=== PATIENT | female | born 1930 | race Caucasian/White ===

== ENCOUNTER 2017-02-28 08:18 | Inpatient (IN) | payer MEDICARE ==
[2017-02-25 19:10] LABS: ASCORBIC ACID (UR NOT ORDER) NEG (NEG); BILIRUBIN, URINE NEGATIVE (NEG); KETONE, URINE NEGATIVE (NEG)
--- NOTE | ~2017-02-28 | HP ---
History And Physical [place] [id number] [place]. [address] NAME: MARY ADAMS APRIL : 30 STATUS : DIS IN PAT#: [id number] AGE: 87 ADM/REG DATE : 02/28/17 MR#: [id number] REPORT SERV DATE: 04/01/17 DICTATED BY: HANNAH SILVA DATE: 03/31/17 REPORT STATUS : Draft TRANSCRIBED BY: MODL DATE: 03/31/17 DATE OF ADMISSION: 02/28/2017 REASON FOR ADMISSION: Altered level of consciousness, malignant hypertension. HISTORY OF PRESENT ILLNESS: Ms. Adams is an 87-year-old female with type 2 diabetes, hypertension, previous history of fall. The patient was found to have a blood pressure systolic greater than 200 and the atrial fibrillation which was not previously known. I was asked to admit. The patient lives in an assisted living facility. ADLs seem typically okay, memory has been okay, but the last week there has been increased confusion. In addition, she has had increased gait disorder, 3 falls over 3 months, although she does walk with a walker. She has a history of UTI but no fever or chills. No current genitourinary complaints. Appetite has been good, no weight loss. No recent complaints other than malaise. The patient has no pain, no nausea or visual changes. She does remember having fallen, and she claims to be unhurt by the fall. PAST MEDICAL HISTORY: As mentioned above and pituitary mass felt to be unresectable. MEDICATIONS: Include allopurinol, aspirin, Lotensin, Cozaar, Coreg, clonidine, Plavix, Lasix, Glucotrol, Xalatan, and Mobic. ALLERGIES: NO ALLERGIES. FAMILY HISTORY: Noncontributory given age. SOCIAL HISTORY: The patient is DNR. Lives in assisted living. PHYSICAL EXAMINATION: VITAL SIGNS: On presentation, blood pressure initially 206/69, currently 111/81; pulse of 71; respirations 22, and afebrile. GENERAL: On exam, a frail white female. Alert and oriented x2 and in no apparent distress. HEENT: Pupils are equal and reactive to light. Extraocular movements are intact. No cranial nerve deficits. Moist mucous membranes. She has mild dullness to the tympanum bilaterally. NECK: With no jugular venous distention, carotid bruits, adenopathy, or goiter. CARDIAC: Regular rate and rhythm. No murmurs, gallops, or rubs. LUNGS: Clear to auscultation bilaterally. Good excursion. ABDOMEN: Nondistended and nontender. Bowel sounds normoactive. EXTREMITIES: No cyanosis, clubbing, or edema. Good pulses and capillary refill. NEUROLOGIC: She has 4/5 strength in the right lower extremity, otherwise normal. Sensory and function is okay. LABORATORY DATA: Sodium 139, potassium 3.0, chloride 95, bicarb 36, BUN 19, creatinine 1.2, glucose 164, white count 4000, H and H 14/41, and platelets 137. Urinalysis negative. History And Physical [address] [address] NAME: MARY ADAMS APRIL : 30 STATUS : DIS IN PAT#: [id number] AGE: 87 ADM/REG DATE : 02/28/17 MR#: [id number] REPORT SERV DATE: 04/01/17 DICTATED BY: HANNAH SILVA DATE: 03/31/17 REPORT STATUS : Draft TRANSCRIBED BY: AMI DATE: 03/31/17 EKG, reviewed by me, showed atrial ablation. 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 ASSESSMENT AND PLAN: 1. Fall with memory and language changes with decreased level of consciousness. We should rule out stroke, rule out seizure, and consider possible pituitary mass which is previously known. 2. Hypertension, malignant, possibly contributes to hypertensive encephalopathy, i.e., PRES syndrome. However, blood pressure is currently okay. We noticed that she is on AN FABIO inhibitor and an ARB. We will discontinue one. We will wean the clonidine off as this is not recommended in seniors, check a tilt, AND address her blood pressure maintaining the systolic goal about 150. 3. Atrial fibrillation, rate is okay. Fall risk appears to be low. Anticoagulation is recommended, but we should avoid triple therapy. Eliquis will be initiated replacing the aspirin and Plavix. 4. Chronic kidney disease. We should discontinue the nonsteroidal anti-inflammatory drug but otherwise satisfactory. 5. Type 2 diabetes. We should be cautious that hypoglycemia may have contributed to some of these falls, to discontinue the Glucotrol would be recommended. 6. Pituitary mass, hormonal assessment would be recommended including prolactin. RSM/MODL Hannah Silva M.D. / [id number] CC: MD Cristhian Malloy M.D.
--- NOTE | ~2017-02-28 | DS ---
Discharge Summary [facility] [address] [facility] [place]. [address] NAME: MARY ADAMS APRIL : 30 STATUS : DIS IN PAT#: [id number] AGE: 87 ADM/REG DATE : 02/28/17 MR#: [id number] REPORT SERV DATE: 03/08/17 DICTATED BY: ALESSANDRA COOK DATE: 03/07/17 REPORT STATUS : Draft TRANSCRIBED BY: AMI DATE: 03/07/17 ADMISSION DATE: 02/28/2017 DISCHARGE DATE: 03/06/2017 REASON FOR TRANSFER: Neurosurgical evaluation of the pituitary adenoma. TRANSFER DISPOSITION: [facility]. TRANSFER DIAGNOSES: 1. Acute encephalopathy. 2. Pituitary microadenoma. 3. Urinary tract infection. 4. Hypertension. 5. Diabetes mellitus. 6. Gout. 7. Paroxysmal atrial fibrillation. 8. Recurrent fall. 9. Bilateral hand swelling. 10.Dyslipidemia. 11.Urinary tract infection. TRANSFER CONDITION: Stable. HISTORY OF PRESENT ILLNESS: For detailed HPI please make reference to Dr. Walker's dictation on 02/28/2017 for detailed H and P. 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 She was evaluated by primary care physician. She was evaluated by her primary care physician, who treated her empirically for urinary tract infection with p.o. levofloxacin. Family members reported that the patient's confusion improved, however, two weeks prior to this admission, she became progressively more confused. She was noted to be having recurrent falls. She was brought to the emergency room for further evaluation. In the emergency room, the patient had a CT of the brain that showed a 2.3 cm pituitary mass. No acute infarct or hemorrhage noted. The patient was admitted to the Hospitalist Service for further evaluation. HOSPITAL COURSE: Acute encephalopathy, the patient had an MRI during the course of this admission to further rule out a CVA. She was noted to have a 2.8 cm pituitary microadenoma impinging the optic chiasm. Further hormonal profiles were obtained. The patient's prolactin was noted to be within normal limits. LH and FSH were low. ACTH was pending at the time of transfer. The patient's TSH was within normal limits. Free T4 was on the borderline of low normal of 0.79. The patient's job superintendent was consulted over the phone, who recommended to recommence the patient on levothyroxine 50 mcg p.o. daily. However, the patient's mental status did not improve. Prednisone was started without any Discharge Summary [place] [id number] [facility] [address]. [address] NAME: MARY ADASM APRIL : 30 STATUS : DIS IN PAT#: [id number] AGE: 87 ADM/REG DATE : 02/28/17 MR#: [id number] REPORT SERV DATE: 03/08/17 DICTATED BY: ALESSANDRA COOK DATE: 03/07/17 REPORT STATUS : Draft TRANSCRIBED BY: AMI DATE: 03/07/17 significant improvement in patient's mental status. Given no improvement in this patient's overall mental status, it was decided at this point to have a further neurosurgical evaluation of the microadenoma. Also to have an official ophthalmologic evaluation. Hence, the patient was transferred to [facility] for further evaluation. Urinary tract infection. The patient's UA which shows leukocyte esterase with greater than 100,000 coliforms of gram-positive bacteria. The patient was started on empiric treatment with IV levofloxacin. The patient's final urine culture came back to be Staph species which was noted to be likely due to a contaminant. The patient's levofloxacin was discontinued at this time. The patient had no fever and no chills throughout the course of this admission. She had a mild leukocytosis of 10.6, that had remained stable throughout the course of admission. Bilateral hand swelling. During the course of this admission, the patient was noted to have developed bilateral hand swelling with some bluish discoloration of the tip of the fingers concerning for possible acute gout flare. The patient was started on prednisone. The patient's pain in bilateral joints improved, but the swelling persisted. Possible other etiologies that have been considered was possible rheumatological changes like rheumatoid arthritis. Hence PATT was ordered prior to discharge. At the time of discharge PATT was still pending. Other studies obtained during the course of this admission include: 1. Echocardiogram; summary, normal left ventricular systolic function with estimated ejection fraction of 60%. Normal right ventricular chamber size and systolic function. Mild AR. 2. Chest x-ray; impression, stable cardiomegaly without acute cardiac decompensation. 3. MRI of the brain; impression. a. Chronic small vessel ischemic changes and atrophic with no acute findings in the brain on noncontrast MRI. b. 2.8 cm pituitary adenoma impinging the optic chiasma. This may explain any vision disturbances. 4. MRA of the head:. a. Unremarkable intracranial MRA. b. Fullness within the pituitary fossa noted on low resolution, diffusion weighted images and sagittal fashion consultant selling image consistent with the known pituitary microadenoma. TRANSFER MEDICATIONS: 1. Prednisone 10 mg p.o. daily. 2. Allopurinol 30 mg p.o. at bedtime. 3. Oxycodone 2.5 mg p.o. b.i.d. 4. Aspirin 81 mg p.o. daily. 5. Benazepril 40 mg p.o. daily. 6. Coreg 25 mg p.o. b.i.d. 7. Simvastatin 20 mg p.o. at bedtime. 8. Insulin sliding scale. Discharge Summary [address] [address] NAME: MARY ADAMS APRIL : 30 STATUS : DIS IN PAT#: [id number] AGE: 87 ADM/REG DATE : 02/28/17 MR#: [id number] REPORT SERV DATE: 03/08/17 DICTATED BY: ALESSANDRA COOK DATE: 03/07/17 REPORT STATUS : Draft TRANSCRIBED BY: AMI DATE: 03/07/17 DISCHARGE DISPOSITION: Transferred to [facility] [place]. The patient was transferred to the Hospitalist Service under the care of Dr. Becerra. YANNI/AMI Alessandra Cook MD / [id number] CC: Iwayemi MD Cristhian Keith M.D.
--- NOTE | ~2017-02-28 | HP ---
History And Physical [place] [address] [place]. [address] NAME: MARY ADAMS STEVEN : 30 STATUS : DIS IN PAT#: [id number] AGE: 87 ADM/REG DATE : 02/28/17 MR#: [id number] REPORT SERV DATE: 04/12/17 DICTATED BY: HANNAH SILVA DATE: 04/12/17 REPORT STATUS : Draft TRANSCRIBED BY: MODDiego DATE: 04/12/17 DATE OF ADMISSION: 02/28/2017 REASON FOR ADMISSION: Fall with altered level of consciousness. HISTORY OF PRESENT ILLNESS: Ms. Adams is an 87-year-old female with hypertension, type 2 diabetes, history of stroke in the past, history of falls, and a blood pressure of greater than 200. We were asked to admit. The patient lives in an assisted living facility. ADLs were okay, memory is okay, but last week she had increased confusion. Three falls noted over the past three months despite use of a walker. Appetite has been good without weight loss. UTI history is noted. No other recent complaints other than amylase. No pain. No nausea. No visual changes. The patient does in fact remember having a fall, but cannot describe the events that occurred. REVIEW OF SYSTEMS: Remainder of the review of systems are unobtainable. PAST MEDICAL HISTORY: Otherwise negative. See above. MEDICATIONS: Allopurinol, aspirin, Lotensin, Cozaar, Coreg, clonidine, Plavix, Lasix, Glucotrol, Xalatan, Mobic, potassium and magnesium supplements. ALLERGIES: NONE. FAMILY HISTORY: Objectively noncontributory due to age. SOCIAL HISTORY: The patient is DNR. Live in assisted living. PHYSICAL EXAMINATION: VITAL SIGNS: On presentation, blood pressure 206/69, pulse 71, respirations 22, and afebrile. Repeat blood pressure 119/31. GENERAL: Frail white female. Alert and oriented x2, in no apparent distress. HEENT: Pupils are equal and reactive to light. Extraocular movements are intact. No cranial nerve deficits. Normal oropharynx. She had a mild tongue laceration. NECK: With no jugular venous distention, carotid bruits, lymphadenopathy, or goiter. CARDIAC: Regular rate and rhythm. No murmurs, gallops, or rubs. LUNGS: Clear to auscultation bilaterally. Good excursion. ABDOMEN: Nondistended and nontender. Bowel sounds normoactive. EXTREMITIES: No cyanosis, clubbing, or edema. Good pulses and capillary refill. NEUROLOGIC: She has 4/5 strength in bilateral lower extremities. There was some bruising noted. Sensory and function was okay. LABORATORY DATA: Sodium 139, potassium 3.0, chloride 95, bicarb 26, BUN 19, creatinine 1.2, glucose 164. White count 4000, H and H 14/41, platelets 137. Urinalysis negative. EKG: Atrial fibrillation. 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 History And Physical [address] [place]. [address] NAME: MARY ADAMS : 30 STATUS : DIS IN PAT#: [id number] AGE: 87 ADM/REG DATE : 02/28/17 MR#: [id number] REPORT SERV DATE: 04/12/17 DICTATED BY: HANNAH SILVA DATE: 04/12/17 REPORT STATUS : Draft TRANSCRIBED BY: AMI DATE: 04/12/17 ASSESSMENT AND PLAN: 1. Fall with memory and language deficits. We should rule out stroke. We are unclear about the change in level of consciousness. Seizures are remote consideration. 2. Hypertension. We should discontinue clonidine given the concern for orthostasis. We will check her tilt. We will simplify her blood pressure regimen to include the FABIO inhibitor or ARB, but not both. 3. Atrial ablation, currently rate is okay. Eliquis is satisfactory. We should try to avoid triple therapy due to high risk of bleeding particularly in the setting of frequent falls. 4. Chronic kidney disease, appears to be stable. We should discontinue the NSAID. 5. Type 2 diabetes. I question whether Glucotrol may have resulted in hypoglycemia and increased falls with increased confusion. We will discontinue this and follow closely. 6. Pituitary mass. Prolactin will be checked. She is a poor surgical candidate. BELIA/AMI Hannah Silva M.D. / [id number] CC: MD Cristhian Malloy M.D.
[2017-02-28 08:29] LABS: BASOPHILS 0.1 %; BASOPHILS ABSOLUTE 0.02 10/3/uL (0.0-0.16); EOSINOPHILS 0.4 %; EOSINOPHILS ABSOLUTE 0.06 10/3/uL (0.0-0.53); ER CBC TAT 0 Hrs 08 Mins; HEMATOCRIT 41.4 % (36.0-48.0); HEMOGLOBIN 13.9 g/dL (12.0-16.0); IMMATURE GRANULOCYTES 0.3 %; IMMATURE GRANULOCYTES ABSOLUTE 0.04 10/3/uL (0.0-0.11); LYMPHOCYTES 10.6 %; LYMPHOCYTES ABSOLUTE 1.54 10/3/uL (0.67-4.30); MEAN CORPUS HGB CONC 33.6 g/dL (32.0-36.0); MEAN CORPUSCULAR VOLUME 89.2 fL (80-100); MEAN PLATELET VOLUME 9.6 fL (9.2-13.0); MONOCYTES 7.7 %; MONOCYTES ABSOLUTE 1.12 10/3/uL (0.21-1.20); NEUTROPHILS 80.9 %; NEUTROPHILS ABSOLUTE 11.71 10/3/uL (2.02-8.40); PLATELET COUNT 237 10/3/uL (150-400); RBC DISTRIBUTION WIDTH 14.8 % (12.0-16.0); RED CELL COUNT 4.64 10/6/uL (4.0-5.6); WHITE BLOOD CELLS 14.5 10/3/uL (4.5-10.5)
[2017-02-28 08:30] LABS: MANUAL DIFF NO %
[2017-02-28 08:39] LABS: INTERNATIONAL NORMAL RATI 1.1 UNITS (-); PARTIAL THROMBO TIME 26.6 SEC (22.5-37.2); PROTIME (NOT ORD) 14.1 SEC (12.0-14.5)
[2017-02-28 08:51] LABS: BUN (BLOOD UREA NITROGEN) 19 MG/DL (6-23); CALCIUM, SERUM 9.3 MG/DL (8.5-10.4); CHEST PAIN PROFILE TAT 0 Hrs 30 Mins; CHLORIDE, SERUM 93 MMOL/L (96-112); CO2 (CARBON DIOXIDE) 36 MMOL/L (24-34); CREATININE 1.09 MG/DL (0.55-1.02); GFR AFRICAN AMERICAN 53 ML/MIN (>=60); GFR NON AFRICAN AMERICAN 46 ML/MIN (>=60); GLUCOSE, SERUM 164 MG/DL (60-99); SODIUM, SERUM 134 MMOL/L (135-148); TROPONIN I 0.02 NG/ML (<0.05); ULTRASENSITIVE TSH 0.919 MCIU/ML (0.358-3.740)
[2017-02-28 09:58] LABS: ASCORBIC ACID (UR NOT ORDER) NEG (NEG); BILIRUBIN, URINE NEGATIVE (NEG); ER URINALYSIS TAT 0 Hrs 18 Mins; KETONE, URINE NEGATIVE (NEG); LEUKOCYTE ESTERASE(NOT OR NEG (NEG); NITRITE (URINE) NEG (NEG); WBC (NOT ORDERED) (RFLEX) < 1 (0-5)
[2017-02-28] MEDS ORDERED: KLOR-CON 1010 MEQ PO ×2 (10:33→10:37)
[2017-02-28] MEDS ORDERED: ASAB PO (10:34)
[2017-02-28] MEDS ORDERED: COZ50 PO (10:34)
[2017-02-28] MEDS ORDERED: LOTE40 PO (10:34)
[2017-02-28] MEDS ORDERED: L20 PO (10:34)
[2017-02-28] MEDS ORDERED: PLAVIX PO (10:34)
[2017-02-28] MEDS ORDERED: ZOCOR20 PO (10:35)
[2017-02-28] MEDS ORDERED: COREG25 PO (10:35)
[2017-02-28] MEDS ORDERED: MOBIC7.5 PO (10:35)
[2017-02-28] MEDS ORDERED: XALAT OPH (10:35)
[2017-02-28] MEDS ORDERED: MAGNESIUM PO (10:36)
[2017-02-28] MEDS ORDERED: CAT1 PO (10:36)
[2017-02-28] MEDS ORDERED: LEVAQUIN5T PO (10:37)
[2017-02-28] MEDS ORDERED: Z300 PO (10:37)
[2017-02-28] MEDS ORDERED: GLUCXL2.5 PO (10:39)
[2017-02-28 15:54] LABS: PROLACTIN 23.7 NG/ML
[2017-03-01 08:45] LABS: BUN (BLOOD UREA NITROGEN) 23 MG/DL (6-23); CALCIUM, SERUM 8.5 MG/DL (8.5-10.4); CHLORIDE, SERUM 96 MMOL/L (96-112); CO2 (CARBON DIOXIDE) 33 MMOL/L (24-34); CREATININE 1.34 MG/DL (0.55-1.02); GFR AFRICAN AMERICAN 41 ML/MIN (>=60); GFR NON AFRICAN AMERICAN 36 ML/MIN (>=60); GLUCOSE, SERUM 96 MG/DL (60-99); POTASSIUM, SERUM 2.8 MMOL/L (3.5-5.3); SODIUM, SERUM 138 MMOL/L (135-148)
[2017-03-02 05:26] LABS: BUN (BLOOD UREA NITROGEN) 24 MG/DL (6-23); CALCIUM, SERUM 8.7 MG/DL (8.5-10.4); CHLORIDE, SERUM 101 MMOL/L (96-112); CO2 (CARBON DIOXIDE) 34 MMOL/L (24-34); GFR AFRICAN AMERICAN 52 ML/MIN (>=60); GFR NON AFRICAN AMERICAN 45 ML/MIN (>=60); SODIUM, SERUM 138 MMOL/L (135-148)
[2017-03-02 05:27] LABS: GLUCOSE, SERUM 123 MG/DL (60-99); POTASSIUM, SERUM 3.9 MMOL/L (3.5-5.3)
[2017-03-04 05:58] LABS: BASOPHILS 0.3 %; BASOPHILS ABSOLUTE 0.03 10/3/uL (0.0-0.16); EOSINOPHILS 1.5 %; EOSINOPHILS ABSOLUTE 0.16 10/3/uL (0.0-0.53); HEMATOCRIT 36.6 % (36.0-48.0); HEMOGLOBIN 11.8 g/dL (12.0-16.0); IMMATURE GRANULOCYTES 0.3 %; IMMATURE GRANULOCYTES ABSOLUTE 0.03 10/3/uL (0.0-0.11); LYMPHOCYTES 19.6 %; LYMPHOCYTES ABSOLUTE 2.13 10/3/uL (0.67-4.30); MANUAL DIFF NO %; MEAN CORPUS HGB CONC 32.2 g/dL (32.0-36.0); MEAN CORPUSCULAR HEMOGLOB 29.6 pg (26.0-34.0); MEAN CORPUSCULAR VOLUME 91.7 fL (80-100); MEAN PLATELET VOLUME 10.7 fL (9.2-13.0); MONOCYTES 8.2 %; MONOCYTES ABSOLUTE 0.89 10/3/uL (0.21-1.20); NEUTROPHILS 70.1 %; NEUTROPHILS ABSOLUTE 7.62 10/3/uL (2.02-8.40); PLATELET COUNT 231 10/3/uL (150-400); RBC DISTRIBUTION WIDTH 15.4 % (12.0-16.0); RED CELL COUNT 3.99 10/6/uL (4.0-5.6); WHITE BLOOD CELLS 10.9 10/3/uL (4.5-10.5)
[2017-03-04 06:17] LABS: BUN (BLOOD UREA NITROGEN) 21 MG/DL (6-23); CALCIUM, SERUM 8.7 MG/DL (8.5-10.4); CHLORIDE, SERUM 103 MMOL/L (96-112); CREATININE 0.83 MG/DL (0.55-1.02); FREE T4 0.76 NG/DL (0.76-1.46); GFR AFRICAN AMERICAN 73 ML/MIN (>=60); GFR NON AFRICAN AMERICAN 63 ML/MIN (>=60); GLUCOSE, SERUM 126 MG/DL (60-99); PHOSPHORUS, SERUM 1.7 MG/DL (2.5-4.5); POTASSIUM, SERUM 3.9 MMOL/L (3.5-5.3); SODIUM, SERUM 139 MMOL/L (135-148)
[2017-03-04 06:19] LABS: CO2 (CARBON DIOXIDE) 29 MMOL/L (24-34); ULTRASENSITIVE TSH 0.735 MCIU/ML (0.358-3.740)
[2017-03-04 17:27] LABS: ASCORBIC ACID (UR NOT ORDER) NEG (NEG); BILIRUBIN, URINE NEGATIVE (NEG); KETONE, URINE NEGATIVE (NEG); LEUKOCYTE ESTERASE(NOT OR LARGE (NEG); WBC (NOT ORDERED) (RFLEX) 67 (0-5)
[2017-03-05 05:46] LABS: BASOPHILS 0.2 %; BASOPHILS ABSOLUTE 0.02 10/3/uL (0.0-0.16); EOSINOPHILS 1.9 %; HEMATOCRIT 35.1 % (36.0-48.0); HEMOGLOBIN 11.2 g/dL (12.0-16.0); IMMATURE GRANULOCYTES 0.4 %; IMMATURE GRANULOCYTES ABSOLUTE 0.04 10/3/uL (0.0-0.11); LYMPHOCYTES 18.7 %; LYMPHOCYTES ABSOLUTE 2.01 10/3/uL (0.67-4.30); MANUAL DIFF NO %; MEAN CORPUS HGB CONC 31.9 g/dL (32.0-36.0); MEAN CORPUSCULAR VOLUME 90.9 fL (80-100); MEAN PLATELET VOLUME 10.5 fL (9.2-13.0); MONOCYTES 7.9 %; MONOCYTES ABSOLUTE 0.85 10/3/uL (0.21-1.20); NEUTROPHILS 70.9 %; NEUTROPHILS ABSOLUTE 7.62 10/3/uL (2.02-8.40); PLATELET COUNT 232 10/3/uL (150-400); RED CELL COUNT 3.86 10/6/uL (4.0-5.6); WHITE BLOOD CELLS 10.7 10/3/uL (4.5-10.5)
[2017-03-05 05:54] LABS: ALBUMIN 2.6 G/DL (3.5-5.0); BUN (BLOOD UREA NITROGEN) 21 MG/DL (6-23); CHLORIDE, SERUM 105 MMOL/L (96-112); CO2 (CARBON DIOXIDE) 29 MMOL/L (24-34); CREATININE 0.87 MG/DL (0.55-1.02); GFR AFRICAN AMERICAN 69 ML/MIN (>=60); GFR NON AFRICAN AMERICAN 60 ML/MIN (>=60); GLUCOSE, SERUM 106 MG/DL (60-99); SODIUM, SERUM 141 MMOL/L (135-148)
[2017-03-05 05:55] LABS: PHOSPHORUS, SERUM 2.5 MG/DL (2.5-4.5)
[2017-03-05 19:31] LABS: LUTEINIZING HORMONE 0.8 MIU/ML
[2017-03-05 19:52] LABS: PROCALCITONIN 0.05 ng/mL (<0.5)
[2017-03-05 23:40] LABS: ALBUMIN 2.5 G/DL (3.5-5.0); ALKALINE PHOSPHATASE 75 U/L (45-117); SGOT(AST) 12 U/L (5-40); SGPT(ALT) 8 U/L (5-65); TOTAL BILIRUBIN 0.4 MG/DL (0-1.2); TOTAL PROTEIN 5.8 G/DL (6.0-8.5)
[2017-03-05 23:41] LABS: DIRECT BILIRUBIN < 0.1 MG/DL (0.0-0.4); INDIRECT BILIRUBIN(NOT ORDER) 0.3 MG/DL (0.1-0.9)
[2017-03-06 06:28] LABS: BASOPHILS 0.1 %; BASOPHILS ABSOLUTE 0.01 10/3/uL (0.0-0.16); EOSINOPHILS 0.1 %; EOSINOPHILS ABSOLUTE 0.01 10/3/uL (0.0-0.53); HEMATOCRIT 34.2 % (36.0-48.0); HEMOGLOBIN 11.2 g/dL (12.0-16.0); IMMATURE GRANULOCYTES 0.4 %; IMMATURE GRANULOCYTES ABSOLUTE 0.04 10/3/uL (0.0-0.11); LYMPHOCYTES ABSOLUTE 1.06 10/3/uL (0.67-4.30); MEAN CORPUS HGB CONC 32.7 g/dL (32.0-36.0); MEAN CORPUSCULAR HEMOGLOB 29.4 pg (26.0-34.0); MEAN CORPUSCULAR VOLUME 89.8 fL (80-100); MEAN PLATELET VOLUME 11.1 fL (9.2-13.0); MONOCYTES 2.8 %; NEUTROPHILS 86.6 %; NEUTROPHILS ABSOLUTE 9.18 10/3/uL (2.02-8.40); PLATELET COUNT 238 10/3/uL (150-400); RBC DISTRIBUTION WIDTH 15.7 % (12.0-16.0); RED CELL COUNT 3.81 10/6/uL (4.0-5.6); WHITE BLOOD CELLS 10.6 10/3/uL (4.5-10.5)
[2017-03-06 06:29] LABS: MANUAL DIFF NO %
[2017-03-06 06:32] LABS: ALBUMIN 2.5 G/DL (3.5-5.0); BUN (BLOOD UREA NITROGEN) 22 MG/DL (6-23); CALCIUM, SERUM 8.4 MG/DL (8.5-10.4); CHLORIDE, SERUM 104 MMOL/L (96-112); CO2 (CARBON DIOXIDE) 27 MMOL/L (24-34); CREATININE 0.83 MG/DL (0.55-1.02); GFR AFRICAN AMERICAN 73 ML/MIN (>=60); GFR NON AFRICAN AMERICAN 63 ML/MIN (>=60); GLUCOSE, SERUM 161 MG/DL (60-99); PHOSPHORUS, SERUM 3.1 MG/DL (2.5-4.5); POTASSIUM, SERUM 4.1 MMOL/L (3.5-5.3); SODIUM, SERUM 138 MMOL/L (135-148)
[2017-03-09 22:42] LABS: ANCA <1:20 (()); MYELOPEROXIDASE ANTIBODY <0.2 AI (<1.0); PROTEINASE 3 ANTIBODY <0.2 AI (<1.0)
== END 2017-03-06 20:37 | disposition short-term general hospital (02) | DRG 643 ==
LOC: ER 08:18 → ER/OF 12:22 → 6NO 13:08
PROVIDERS: Hospitalist; Internal Medicine
DX: D35.2 Benign neoplasm of pituitary gland (principal); G93.40 Encephalopathy, unspecified; E11.649 Type 2 diabetes mellitus with hypoglycemia without coma; R56.9 Unspecified convulsions; I48.0 Paroxysmal atrial fibrillation; R47.01 Aphasia; I10 Essential (primary) hypertension; E78.5 Hyperlipidemia, unspecified; M10.9 Gout, unspecified; K59.00 Constipation, unspecified; Z91.81 History of falling; M79.89 Other specified soft tissue disorders
CPT/HCPCS: 70450; 70544; 70551; 71010; 74000; 74022; 80048; 80069; 80076; 81001; 82024; 82140; 82533; 82962; 83001; 83002; 83516; 83516-59; 83519; 83525; 83690; 83735; 84100; 84145; 84146; 84439; 84443; 84484; 84550; 85025; 85610; 85652; 85730; 86140; 86255; 87086; 92610-GN; 93005; 93306; 97161-GP; 97165-GO; 97530-GP; 99285; A9270-GY; G8978-CK-GP; G8979-CJ-GP; G8987-CJ-GO; G8988-CJ-GO; G8989-CJ-GO; G8996-CJ-GN; G8997-CJ-GN; G8998-CJ-GN; J0360; J1956; J2405; J3475